=== PATIENT | male | born 1930 | race African-American/Black ===

== ENCOUNTER 2021-07-05 10:33 | Inpatient (IN) | payer MEDICARE, MEDICAID ==
[2021-07-05] MEDS ORDERED: cefTRIAXone\\ROCEPHIN 1 GM VIAL ONE (11:05)
[2021-07-05] MEDS ORDERED: Acetaminophen 500 MG TAB ONE (11:05)
[2021-07-05] MEDS ORDERED: Sodium Chloride 0.9% 100 ML ONE (11:05)
[2021-07-05 11:28] LABS: Hemoglobin 17.4 g/dL (14.0-18.0); Mean Corpuscular HGB CONC 32.6 g/dL (32.0-36.0); Mean Corpuscular Hemoglobin 27.8 pg (27.0-31.0); Mean Corpuscular Volume 85.3 fL (78.0-98.0); Mean Platelet Volume 10.7 fL (7.4-10.4); Platelet Count 131 thou/uL (130-400); RBC Distribution Width 13.2 % (11.5-14.5); Red Blood Cell (RBC) Count 6.25 mill/uL (4.70-6.10); White Blood Cell (WBC) Count 4.4 thou/uL (4.8-10.8)
[2021-07-05 12:01] LABS: Band 2 % (5-11); Lymphocytes 32 % (21-51); MDiff Complete? YES; Monocytes 11 % (0-10); Neutrophil 49 % (42-75); Reactive Lymphocytes 6 % (0-10)
[2021-07-05 12:10] LABS: ALT (SGPT) 25 U/L (8-55); AST (SGOT) 39 U/L (5-34); Albumin 3.6 g/dL (3.4-4.8); Alkaline Phosphatase 78 U/L (40-110); Anion Gap 20 mmol/L (10-20); BUN (Urea Nitrogen) 11 mg/dL (8.4-25.7); Bilirubin, Total 0.5 mg/dL (0.2-1.2); CK (CPK) 351 U/L (30-200); Calc. Creatinine Clearance 0 mL/min (70-130); Calcium 9.2 mg/dL (7.8-10.44); Carbon Dioxide 23 mmol/L (23-31); Chloride 99 mmol/L (98-107); Globulin 3.9 g/dL (2.4-3.5); Glucose 157 mg/dL (83-110); Potassium 4.6 mmol/L (3.5-5.1); Protein, Total 7.5 g/dL (5.8-8.1); Sodium 137 mmol/L (136-145)
[2021-07-05 12:19] LABS: Bilirubin Small (Negative); Blood, Urine Trace (Negative); Clarity Cloudy (Clear); Glucose, Urine (Dipstick) Negative (Negative); Ketone, Urine 40 mg/dL (Negative); Leukocyte Negative (Negative); Nitrite Negative (Negative); Protein, Urine (Dipstick) > or equal to 300 mg/dL (Neg-Trace); pH, Urine 5.5 (5.0-9.0)
[2021-07-05 12:22] LABS: Specific Gravity, Urine 1.026 (1.002-1.036)
[2021-07-05 12:23] LABS: Bacteria/HPF Rare-Few HPF (None Seen); RBC/HPF 0-3 HPF (0-3); Squamous Epithelial 0-3 HPF (0-3); WBC/HPF 0-3 HPF (0-3)
[2021-07-05 14:35] LABS: SARS-CoV-2 NAA Rapid Test DETECTED (NotDetected)
[2021-07-06] MEDS ORDERED: Sodium Chloride 0.9% 100 ML ONE (12:37)
[2021-07-06] MEDS ORDERED: cefTRIAXone\\ROCEPHIN 1 GM VIAL ONE (12:37)
[2021-07-06] MEDS ORDERED: Ondansetron ODT 4 MG TAB SL PRN (17:00)
[2021-07-06] MEDS ORDERED: Ondansetron PF 4 MG/2 ML Vial IVP PRN (17:00)
[2021-07-06] MEDS ORDERED: Acetaminophen 325 MG TAB PO PRN (17:00)
[2021-07-06 17:20] VITALS: BMI 25.4
[2021-07-06] MEDS ORDERED: Loperamide HCl 2 MG CAP PO PRN (17:52)
[2021-07-06] MEDS ORDERED: Guaifenesin DM 100-10/5 ML UDCUP PO PRN (17:52)
[2021-07-06] MEDS ORDERED: Bisacodyl 5 MG TAB PO PRN (17:52)
[2021-07-06] MEDS: Sodium Chloride 0.9% 1,000 ML IV SCH (21:06)
[2021-07-06] MEDS: Enoxaparin Sodium 30 MG/0.3 ML SYRINGE SC SCH (21:07)
[2021-07-07 05:56] LABS: #Lymphocytes 1.7 thou/uL (1.20-3.40); #Monocytes 0.5 thou/uL (0.11-0.59); #Neutrophils 5.4 thou/uL (1.40-6.50); %Basophils 0.2 % (0.0-1.0); %Lymphocytes 21.7 % (21.0-51.0); %Monocytes 6.6 % (0.0-10.0); %Neutrophils 71.5 % (42.0-75.0); Hemoglobin 14.4 g/dL (14.0-18.0); Mean Corpuscular HGB CONC 32.5 g/dL (32.0-36.0); Mean Corpuscular Hemoglobin 27.8 pg (27.0-31.0); Mean Corpuscular Volume 85.8 fL (78.0-98.0); Mean Platelet Volume 8.2 fL (7.4-10.4); Platelet Count 120 thou/uL (130-400); RBC Distribution Width 12.6 % (11.5-14.5); Red Blood Cell (RBC) Count 5.17 mill/uL (4.70-6.10); White Blood Cell (WBC) Count 7.6 thou/uL (4.8-10.8)
[2021-07-07 06:30] LABS: Anion Gap 17 mmol/L (10-20)
[2021-07-07 06:42] LABS: ALT (SGPT) 18 U/L (8-55); AST (SGOT) 30 U/L (5-34); Albumin 2.9 g/dL (3.4-4.8); Alkaline Phosphatase 64 U/L (40-110); BUN (Urea Nitrogen) 9 mg/dL (8.4-25.7); Bilirubin, Total 0.5 mg/dL (0.2-1.2); Calc. Creatinine Clearance 81 mL/min (70-130); Calcium 8.1 mg/dL (7.8-10.44); Carbon Dioxide 23 mmol/L (23-31); Chloride 101 mmol/L (98-107); Globulin 2.4 g/dL (2.4-3.5); Glucose 132 mg/dL (83-110); Potassium 4.1 mmol/L (3.5-5.1); Protein, Total 5.3 g/dL (5.8-8.1); Sodium 137 mmol/L (136-145)
[2021-07-07] MEDS: Sodium Chloride 0.9% 1,000 ML IV SCH ×5 (07:46→21:27)
[2021-07-07] MEDS: Enoxaparin Sodium 30 MG/0.3 ML SYRINGE SC SCH ×2 (09:03→21:27)
[2021-07-08 05:15] LABS: ALT (SGPT) 16 U/L (8-55); AST (SGOT) 25 U/L (5-34); Albumin 2.7 g/dL (3.4-4.8); Alkaline Phosphatase 63 U/L (40-110); Anion Gap 18 mmol/L (10-20); BUN (Urea Nitrogen) 8 mg/dL (8.4-25.7); Bilirubin, Total 0.4 mg/dL (0.2-1.2); Calc. Creatinine Clearance 83 mL/min (70-130); Calcium 8.8 mg/dL (7.8-10.44); Carbon Dioxide 24 mmol/L (23-31); Chloride 102 mmol/L (98-107); Globulin 2.9 g/dL (2.4-3.5); Glucose 115 mg/dL (83-110); Potassium 3.6 mmol/L (3.5-5.1); Protein, Total 5.6 g/dL (5.8-8.1); Sodium 140 mmol/L (136-145)
[2021-07-08 06:27] LABS: Hemoglobin 14.3 g/dL (14.0-18.0); Lymphocytes 37 % (21-51); MDiff Complete? YES; Mean Corpuscular HGB CONC 32.3 g/dL (32.0-36.0); Mean Corpuscular Hemoglobin 27.7 pg (27.0-31.0); Mean Corpuscular Volume 85.8 fL (78.0-98.0); Monocytes 6 % (0-10); Neutrophil 57 % (42-75); Platelet Count 141 thou/uL (130-400); Platelet Morphology Comment Appears Adequate; RBC Distribution Width 12.6 % (11.5-14.5); RBC Morphology Normal; Red Blood Cell (RBC) Count 5.15 mill/uL (4.70-6.10); White Blood Cell (WBC) Count 4.9 thou/uL (4.8-10.8)
[2021-07-08] MEDS: Sodium Chloride 0.9% 1,000 ML IV SCH ×2 (10:04→13:45)
[2021-07-08] MEDS: Enoxaparin Sodium 30 MG/0.3 ML SYRINGE SC SCH ×2 (10:05→21:31)
[2021-07-09] MEDS: Gentamicin Ophth Ointment 0.3% 3.5 gm Tube EA EYE SCH ×2 (00:05→09:47)
[2021-07-09] MEDS: Sodium Chloride 0.9% 1,000 ML IV SCH ×2 (05:07→13:37)
[2021-07-09] MEDS: Enoxaparin Sodium 30 MG/0.3 ML SYRINGE SC SCH ×2 (09:46→20:49)
[2021-07-09] MEDS ORDERED: Gentamicin Ophth Soln 0.3% 5 ml Bottle ONE (14:17)
[2021-07-09] MEDS: Gentamicin Ophth Soln 0.3% 5 ml Bottle EA EYE SCH ×2 (14:21→20:56)
[2021-07-09 17:33] VITALS: BP 153/72; TEMP 98
[2021-07-10] MEDS ORDERED: Cholecalciferol (Vitamin D3) 400 UNITS TAB PO SCH (09:00)
[2021-07-10] MEDS ORDERED: Zinc Sulfate 220 MG CAP PO SCH (09:00)
[2021-07-10] MEDS ORDERED: Ascorbic Acid 500 mg Chewable Tablet PO SCH (09:00)
== END 2021-07-09 22:30 | disposition swing bed (61) | DRG 177 ==
LOC: BURERS 10:33 → BURMED 07-06 14:37
PROVIDERS: ADMIT Family Medicine; ATTEND Family Medicine
PROC: 8E0ZXY6 Isolation (ICD-10-PCS; principal; 2021-07-06)
DX: U07.1 COVID-19 (principal); J12.82 Pneumonia due to coronavirus disease 2019; E11.9 Type 2 diabetes mellitus without complications; E78.5 Hyperlipidemia, unspecified; E78.00 Pure hypercholesterolemia, unspecified; I10 Essential (primary) hypertension
CPT/HCPCS: 36415; 51702; 70450; 71045; 71250; 80053; 81003; 81015; 82550; 82728; 83605; 83880; 84484; 85025; 85379; 86140; 87040; 87086; 87804; 93005; 94760; 96365; 96376; J0696; J1650; J3490; J7050; U0002

== ENCOUNTER 2021-07-09 19:10 | Inpatient (IN) | payer MEDICARE, MEDICAID ==
[2021-07-10 00:20] VITALS: BMI 25.4
[2021-07-10] MEDS ORDERED: Acetaminophen 325 MG TAB PO PRN (04:59)
[2021-07-10] MEDS ORDERED: Guaifenesin DM 100-10/5 ML UDCUP PO PRN (05:00)
[2021-07-10] MEDS ORDERED: Ondansetron ODT 4 MG TAB SL PRN (05:01)
[2021-07-10] MEDS: Sodium Chloride 0.9% 1,000 ML IV SCH ×2 (05:02→17:02)
[2021-07-10] MEDS: metFORMIN 500 MG TAB PO SCH ×2 (10:21→17:02)
[2021-07-10] MEDS: Ascorbic Acid 500 mg Chewable Tablet PO SCH (10:21)
[2021-07-10] MEDS: Cholecalciferol 1,000 UNITS (25 MCG) TAB PO SCH (10:22)
[2021-07-10] MEDS: Zinc Sulfate 220 MG CAP PO SCH (10:22)
[2021-07-10] MEDS: Nystatin 500,000 UNITS/5 ML UDCUP SSW SCH ×3 (10:22→20:58)
[2021-07-10] MEDS: Lisinopril 20 MG TAB PO SCH (10:22)
[2021-07-10] MEDS: Enoxaparin Sodium 30 MG/0.3 ML SYRINGE SC SCH ×2 (10:23→20:57)
[2021-07-10] MEDS: Gentamicin Ophth Soln 0.3% 5 ml Bottle EA EYE SCH ×3 (10:23→20:58)
[2021-07-11] MEDS: Nystatin 500,000 UNITS/5 ML UDCUP SSW SCH ×3 (09:59→21:31)
[2021-07-11] MEDS: metFORMIN 500 MG TAB PO SCH ×2 (09:59→17:04)
[2021-07-11] MEDS: Ascorbic Acid 500 mg Chewable Tablet PO SCH (10:00)
[2021-07-11] MEDS: Enoxaparin Sodium 30 MG/0.3 ML SYRINGE SC SCH ×2 (10:03→21:30)
[2021-07-11] MEDS: Cholecalciferol 1,000 UNITS (25 MCG) TAB PO SCH (10:03)
[2021-07-11] MEDS: Lisinopril 20 MG TAB PO SCH (10:03)
[2021-07-11] MEDS: Gentamicin Ophth Soln 0.3% 5 ml Bottle EA EYE SCH ×3 (10:03→21:31)
[2021-07-11] MEDS: Sodium Chloride 0.9% 1,000 ML IV SCH ×2 (10:04→21:43)
[2021-07-11] MEDS: Zinc Sulfate 220 MG CAP PO SCH (10:04)
[2021-07-12 05:18] LABS: #Lymphocytes 1.6 thou/uL (1.20-3.40); #Monocytes 0.7 thou/uL (0.11-0.59); #Neutrophils 2.6 thou/uL (1.40-6.50); %Basophils 0.6 % (0.0-1.0); %Eosinophils 0.9 % (0.0-10.0); %Lymphocytes 31.7 % (21.0-51.0); %Monocytes 14.7 % (0.0-10.0); %Neutrophils 52.1 % (42.0-75.0); Hemoglobin 12.9 g/dL (14.0-18.0); Mean Corpuscular HGB CONC 32.2 g/dL (32.0-36.0); Mean Corpuscular Hemoglobin 27.6 pg (27.0-31.0); Mean Corpuscular Volume 85.5 fL (78.0-98.0); Mean Platelet Volume 9.7 fL (7.4-10.4); Platelet Count 189 thou/uL (130-400); RBC Distribution Width 12.9 % (11.5-14.5); Red Blood Cell (RBC) Count 4.69 mill/uL (4.70-6.10); White Blood Cell (WBC) Count 4.9 thou/uL (4.8-10.8)
[2021-07-12 05:21] LABS: ALT (SGPT) 20 U/L (8-55); AST (SGOT) 23 U/L (5-34); Albumin 2.5 g/dL (3.4-4.8); Alkaline Phosphatase 67 U/L (40-110); Anion Gap 13 mmol/L (10-20); BUN (Urea Nitrogen) Less than 4 mg/dL (8.4-25.7); Bilirubin, Total 0.4 mg/dL (0.2-1.2); CRP (Inflammatory) 3.95 mg/dL (= or < 0.5); Calc. Creatinine Clearance 81 mL/min (70-130); Calcium 8.4 mg/dL (7.8-10.44); Carbon Dioxide 26 mmol/L (23-31); Chloride 106 mmol/L (98-107); Globulin 3.2 g/dL (2.4-3.5); Glucose 144 mg/dL (83-110); Potassium 3.5 mmol/L (3.5-5.1); Protein, Total 5.7 g/dL (5.8-8.1); Sodium 141 mmol/L (136-145)
[2021-07-12] MEDS: Zinc Sulfate 220 MG CAP PO SCH (11:23)
[2021-07-12] MEDS: Enoxaparin Sodium 30 MG/0.3 ML SYRINGE SC SCH ×2 (11:23→21:32)
[2021-07-12] MEDS: Nystatin 500,000 UNITS/5 ML UDCUP SSW SCH ×3 (11:24→21:33)
[2021-07-12] MEDS: metFORMIN 500 MG TAB PO SCH ×2 (11:24→16:47)
[2021-07-12] MEDS: Cholecalciferol 1,000 UNITS (25 MCG) TAB PO SCH (11:24)
[2021-07-12] MEDS: Ascorbic Acid 500 mg Chewable Tablet PO SCH (11:25)
[2021-07-12] MEDS: Sodium Chloride 0.9% 1,000 ML IV SCH ×2 (11:25→23:50)
[2021-07-12] MEDS: Gentamicin Ophth Soln 0.3% 5 ml Bottle EA EYE SCH ×3 (11:25→21:32)
[2021-07-12] MEDS: Lisinopril 20 MG TAB PO SCH (11:26)
[2021-07-13] MEDS: Enoxaparin Sodium 30 MG/0.3 ML SYRINGE SC SCH ×2 (09:44→20:42)
[2021-07-13] MEDS: Ascorbic Acid 500 mg Chewable Tablet PO SCH (09:44)
[2021-07-13] MEDS: Gentamicin Ophth Soln 0.3% 5 ml Bottle EA EYE SCH ×3 (09:44→20:43)
[2021-07-13] MEDS: metFORMIN 500 MG TAB PO SCH ×2 (09:45→16:51)
[2021-07-13] MEDS: Lisinopril 20 MG TAB PO SCH (09:46)
[2021-07-13] MEDS: Cholecalciferol 1,000 UNITS (25 MCG) TAB PO SCH (09:46)
[2021-07-13] MEDS: Zinc Sulfate 220 MG CAP PO SCH (09:46)
[2021-07-13] MEDS: Nystatin 500,000 UNITS/5 ML UDCUP SSW SCH ×3 (09:47→20:42)
[2021-07-13] MEDS: Sodium Chloride 0.9% 1,000 ML IV SCH (16:02)
[2021-07-14] MEDS: Sodium Chloride 0.9% 1,000 ML IV SCH ×2 (04:56→14:27)
[2021-07-14] MEDS: Gentamicin Ophth Soln 0.3% 5 ml Bottle EA EYE SCH ×3 (10:30→20:35)
[2021-07-14] MEDS: Enoxaparin Sodium 30 MG/0.3 ML SYRINGE SC SCH ×2 (10:30→20:35)
[2021-07-14] MEDS: Nystatin 500,000 UNITS/5 ML UDCUP SSW SCH ×3 (10:31→20:35)
[2021-07-14] MEDS: Zinc Sulfate 220 MG CAP PO SCH (10:31)
[2021-07-14] MEDS: Ascorbic Acid 500 mg Chewable Tablet PO SCH (10:31)
[2021-07-14] MEDS: metFORMIN 500 MG TAB PO SCH ×2 (10:31→18:06)
[2021-07-14] MEDS: Cholecalciferol 1,000 UNITS (25 MCG) TAB PO SCH (10:32)
[2021-07-14] MEDS: Lisinopril 20 MG TAB PO SCH (10:32)
[2021-07-15] MEDS: Zinc Sulfate 220 MG CAP PO SCH (11:08)
[2021-07-15] MEDS: metFORMIN 500 MG TAB PO SCH ×2 (11:08→18:24)
[2021-07-15] MEDS: Cholecalciferol 1,000 UNITS (25 MCG) TAB PO SCH (11:09)
[2021-07-15] MEDS: Lisinopril 20 MG TAB PO SCH (11:09)
[2021-07-15] MEDS: Ascorbic Acid 500 mg Chewable Tablet PO SCH (11:09)
[2021-07-15] MEDS: Enoxaparin Sodium 30 MG/0.3 ML SYRINGE SC SCH ×2 (11:10→20:57)
[2021-07-15] MEDS: Nystatin 500,000 UNITS/5 ML UDCUP SSW SCH ×3 (11:11→20:56)
[2021-07-15] MEDS: Gentamicin Ophth Soln 0.3% 5 ml Bottle EA EYE SCH ×3 (11:11→20:56)
[2021-07-15] MEDS: Sodium Chloride 0.9% 1,000 ML IV SCH (19:38)
[2021-07-16] MEDS: Bisacodyl 5 MG TAB PO PRN (10:29)
[2021-07-16] MEDS: Nystatin 500,000 UNITS/5 ML UDCUP SSW SCH ×3 (10:29→20:23)
[2021-07-16] MEDS: Ascorbic Acid 500 mg Chewable Tablet PO SCH (10:30)
[2021-07-16] MEDS: Zinc Sulfate 220 MG CAP PO SCH (10:30)
[2021-07-16] MEDS: Gentamicin Ophth Soln 0.3% 5 ml Bottle EA EYE SCH ×3 (10:31→20:23)
[2021-07-16] MEDS: Lisinopril 20 MG TAB PO SCH (10:31)
[2021-07-16] MEDS: Cholecalciferol 1,000 UNITS (25 MCG) TAB PO SCH (10:31)
[2021-07-16] MEDS: metFORMIN 500 MG TAB PO SCH ×2 (10:31→17:37)
[2021-07-16] MEDS: Enoxaparin Sodium 30 MG/0.3 ML SYRINGE SC SCH ×2 (10:32→20:23)
[2021-07-17] MEDS: Enoxaparin Sodium 30 MG/0.3 ML SYRINGE SC SCH ×2 (08:50→21:15)
[2021-07-17] MEDS: Gentamicin Ophth Soln 0.3% 5 ml Bottle EA EYE SCH ×3 (08:50→21:15)
[2021-07-17] MEDS: Lisinopril 20 MG TAB PO SCH (08:51)
[2021-07-17] MEDS: Cholecalciferol 1,000 UNITS (25 MCG) TAB PO SCH (08:51)
[2021-07-17] MEDS: Ascorbic Acid 500 mg Chewable Tablet PO SCH (08:51)
[2021-07-17] MEDS: metFORMIN 500 MG TAB PO SCH ×2 (08:52→17:26)
[2021-07-17] MEDS: Zinc Sulfate 220 MG CAP PO SCH (08:53)
[2021-07-17] MEDS: Bisacodyl 5 MG TAB PO PRN (14:57)
[2021-07-17] MEDS ORDERED: Dextrose 50% Abboject 50 ML SYRINGE SLOW IVP PRN (18:59)
[2021-07-17] MEDS ORDERED: Dextrose 5% in Water 1,000 ML IV PRN (18:59)
[2021-07-17] MEDS ORDERED: HumaLOG 300 UNITS/3 ML VIAL SC PRN (18:59)
[2021-07-18] MEDS: Gentamicin Ophth Soln 0.3% 5 ml Bottle EA EYE SCH ×3 (07:50→20:46)
[2021-07-18] MEDS: Lisinopril 20 MG TAB PO SCH (07:51)
[2021-07-18] MEDS: Zinc Sulfate 220 MG CAP PO SCH (07:51)
[2021-07-18] MEDS: Cholecalciferol 1,000 UNITS (25 MCG) TAB PO SCH (07:52)
[2021-07-18] MEDS: Ascorbic Acid 500 mg Chewable Tablet PO SCH (07:52)
[2021-07-18] MEDS: metFORMIN 500 MG TAB PO SCH ×2 (07:52→17:50)
[2021-07-18] MEDS: Enoxaparin Sodium 30 MG/0.3 ML SYRINGE SC SCH ×2 (07:54→20:46)
[2021-07-18] MEDS ORDERED: Triamterene/Hydrochlorothiazide TAB PO SCH (09:00)
[2021-07-19] MEDS: Gentamicin Ophth Soln 0.3% 5 ml Bottle EA EYE SCH ×3 (08:34→20:55)
[2021-07-19] MEDS: Enoxaparin Sodium 30 MG/0.3 ML SYRINGE SC SCH ×2 (08:34→20:54)
[2021-07-19] MEDS: Triamterene/Hydrochlorothiazide 37.5 mg/25 mg Tablet PO SCH (08:35)
[2021-07-19] MEDS: Zinc Sulfate 220 MG CAP PO SCH (08:35)
[2021-07-19] MEDS: Ascorbic Acid 500 mg Chewable Tablet PO SCH (08:35)
[2021-07-19] MEDS: Lisinopril 20 MG TAB PO SCH (08:35)
[2021-07-19] MEDS: Cholecalciferol 1,000 UNITS (25 MCG) TAB PO SCH (08:37)
[2021-07-19] MEDS: metFORMIN 500 MG TAB PO SCH ×2 (08:37→17:46)
[2021-07-20 07:44] LABS: Hemoglobin 14.9 g/dL (14.0-18.0); Platelet Count 230 thou/uL (130-400)
[2021-07-20 07:48] LABS: Calc. Creatinine Clearance 72 mL/min (70-130)
[2021-07-20] MEDS: Enoxaparin Sodium 30 MG/0.3 ML SYRINGE SC SCH ×2 (09:57→21:21)
[2021-07-20] MEDS: Ascorbic Acid 500 mg Chewable Tablet PO SCH (09:58)
[2021-07-20] MEDS: Zinc Sulfate 220 MG CAP PO SCH (09:58)
[2021-07-20] MEDS: Lisinopril 20 MG TAB PO SCH (09:58)
[2021-07-20] MEDS: metFORMIN 500 MG TAB PO SCH ×2 (09:59→18:25)
[2021-07-20] MEDS: Gentamicin Ophth Soln 0.3% 5 ml Bottle EA EYE SCH ×3 (09:59→21:22)
[2021-07-20] MEDS: Cholecalciferol 1,000 UNITS (25 MCG) TAB PO SCH (09:59)
[2021-07-20] MEDS: Triamterene/Hydrochlorothiazide 37.5 mg/25 mg Tablet PO SCH (09:59)
[2021-07-21] MEDS: Ascorbic Acid 500 mg Chewable Tablet PO SCH (09:45)
[2021-07-21] MEDS: Enoxaparin Sodium 30 MG/0.3 ML SYRINGE SC SCH ×2 (09:45→21:56)
[2021-07-21] MEDS: Zinc Sulfate 220 MG CAP PO SCH (09:47)
[2021-07-21] MEDS: Triamterene/Hydrochlorothiazide 37.5 mg/25 mg Tablet PO SCH (09:47)
[2021-07-21] MEDS: metFORMIN 500 MG TAB PO SCH ×2 (09:48→17:53)
[2021-07-21] MEDS: Cholecalciferol 1,000 UNITS (25 MCG) TAB PO SCH (09:49)
[2021-07-21] MEDS: Lisinopril 20 MG TAB PO SCH (09:49)
[2021-07-21] MEDS: Gentamicin Ophth Soln 0.3% 5 ml Bottle EA EYE SCH ×3 (09:56→21:55)
[2021-07-22 05:05] LABS: Platelet Count 215 thou/uL (130-400)
[2021-07-22 05:34] LABS: Calc. Creatinine Clearance 68 mL/min (70-130)
[2021-07-22] MEDS: Enoxaparin Sodium 30 MG/0.3 ML SYRINGE SC SCH ×2 (09:37→20:43)
[2021-07-22] MEDS: Ascorbic Acid 500 mg Chewable Tablet PO SCH (09:38)
[2021-07-22] MEDS: Triamterene/Hydrochlorothiazide 37.5 mg/25 mg Tablet PO SCH (09:38)
[2021-07-22] MEDS: metFORMIN 500 MG TAB PO SCH ×2 (09:38→16:23)
[2021-07-22] MEDS: Zinc Sulfate 220 MG CAP PO SCH (09:39)
[2021-07-22] MEDS: Lisinopril 20 MG TAB PO SCH (09:39)
[2021-07-22] MEDS: Cholecalciferol 1,000 UNITS (25 MCG) TAB PO SCH (09:39)
[2021-07-22] MEDS: Gentamicin Ophth Soln 0.3% 5 ml Bottle EA EYE SCH ×3 (09:40→20:43)
[2021-07-22] MEDS: HumaLOG 300 UNITS/3 ML VIAL SC PRN (18:46)
[2021-07-23] MEDS: Enoxaparin Sodium 30 MG/0.3 ML SYRINGE SC SCH ×2 (09:10→20:04)
[2021-07-23] MEDS: Gentamicin Ophth Soln 0.3% 5 ml Bottle EA EYE SCH ×3 (09:11→20:03)
[2021-07-23] MEDS: metFORMIN 500 MG TAB PO SCH ×2 (09:12→16:30)
[2021-07-23] MEDS: Zinc Sulfate 220 MG CAP PO SCH (09:13)
[2021-07-23] MEDS: Triamterene/Hydrochlorothiazide 37.5 mg/25 mg Tablet PO SCH (09:13)
[2021-07-23] MEDS: Ascorbic Acid 500 mg Chewable Tablet PO SCH (09:13)
[2021-07-23] MEDS: Lisinopril 20 MG TAB PO SCH (09:13)
[2021-07-23] MEDS: Cholecalciferol 1,000 UNITS (25 MCG) TAB PO SCH (09:13)
[2021-07-24] MEDS: Ascorbic Acid 500 mg Chewable Tablet PO SCH (09:40)
[2021-07-24] MEDS: Lisinopril 20 MG TAB PO SCH (09:40)
[2021-07-24] MEDS: metFORMIN 500 MG TAB PO SCH ×2 (09:40→15:50)
[2021-07-24] MEDS: Zinc Sulfate 220 MG CAP PO SCH (09:40)
[2021-07-24] MEDS: Triamterene/Hydrochlorothiazide 37.5 mg/25 mg Tablet PO SCH (09:40)
[2021-07-24] MEDS: Cholecalciferol 1,000 UNITS (25 MCG) TAB PO SCH (09:40)
[2021-07-24] MEDS: Enoxaparin Sodium 30 MG/0.3 ML SYRINGE SC SCH ×2 (09:41→22:45)
[2021-07-24] MEDS: Gentamicin Ophth Soln 0.3% 5 ml Bottle EA EYE SCH ×3 (09:41→22:45)
[2021-07-24] MEDS: HumaLOG 300 UNITS/3 ML VIAL SC PRN (09:45)
[2021-07-24] MEDS ORDERED: Gentamicin Ophth Soln 0.3% 5 ml Bottle ONE (22:36)
[2021-07-25 05:16] LABS: Hemoglobin 15.3 g/dL (14.0-18.0); Platelet Count 188 thou/uL (130-400)
[2021-07-25] MEDS: Gentamicin Ophth Soln 0.3% 5 ml Bottle EA EYE SCH ×3 (09:33→21:17)
[2021-07-25] MEDS: Zinc Sulfate 220 MG CAP PO SCH (09:33)
[2021-07-25] MEDS: Triamterene/Hydrochlorothiazide 37.5 mg/25 mg Tablet PO SCH (09:33)
[2021-07-25] MEDS: metFORMIN 500 MG TAB PO SCH ×2 (09:34→16:02)
[2021-07-25] MEDS: Cholecalciferol 1,000 UNITS (25 MCG) TAB PO SCH (09:34)
[2021-07-25] MEDS: Lisinopril 20 MG TAB PO SCH (09:34)
[2021-07-25] MEDS: Enoxaparin Sodium 30 MG/0.3 ML SYRINGE SC SCH ×2 (09:34→21:16)
[2021-07-25] MEDS: Ascorbic Acid 500 mg Chewable Tablet PO SCH (09:34)
[2021-07-25] MEDS: HumaLOG 300 UNITS/3 ML VIAL SC PRN (13:13)
[2021-07-26] MEDS: Triamterene/Hydrochlorothiazide 37.5 mg/25 mg Tablet PO SCH (09:16)
[2021-07-26] MEDS: Cholecalciferol 1,000 UNITS (25 MCG) TAB PO SCH (09:16)
[2021-07-26] MEDS: Zinc Sulfate 220 MG CAP PO SCH (09:16)
[2021-07-26] MEDS: Ascorbic Acid 500 mg Chewable Tablet PO SCH (09:16)
[2021-07-26] MEDS: metFORMIN 500 MG TAB PO SCH ×2 (09:16→16:41)
[2021-07-26] MEDS: Lisinopril 20 MG TAB PO SCH (09:17)
[2021-07-26] MEDS: Enoxaparin Sodium 30 MG/0.3 ML SYRINGE SC SCH ×2 (09:17→21:44)
[2021-07-26] MEDS: Gentamicin Ophth Soln 0.3% 5 ml Bottle EA EYE SCH ×3 (09:18→21:45)
[2021-07-26] MEDS: HumaLOG 300 UNITS/3 ML VIAL SC PRN (13:07)
[2021-07-27] MEDS: Lisinopril 20 MG TAB PO SCH (09:45)
[2021-07-27] MEDS: metFORMIN 500 MG TAB PO SCH ×2 (09:46→18:24)
[2021-07-27] MEDS: Zinc Sulfate 220 MG CAP PO SCH (09:47)
[2021-07-27] MEDS: Enoxaparin Sodium 30 MG/0.3 ML SYRINGE SC SCH ×2 (09:47→22:20)
[2021-07-27] MEDS: Cholecalciferol 1,000 UNITS (25 MCG) TAB PO SCH (09:47)
[2021-07-27] MEDS: Ascorbic Acid 500 mg Chewable Tablet PO SCH (09:47)
[2021-07-27] MEDS: Triamterene/Hydrochlorothiazide 37.5 mg/25 mg Tablet PO SCH (09:47)
[2021-07-27] MEDS: Gentamicin Ophth Soln 0.3% 5 ml Bottle EA EYE SCH (09:49)
[2021-07-27] MEDS: HumaLOG 300 UNITS/3 ML VIAL SC PRN (18:25)
[2021-07-28 05:31] VITALS: TEMP 98
[2021-07-28 06:03] LABS: Hemoglobin 14.9 g/dL (14.0-18.0); Platelet Count 194 thou/uL (130-400)
[2021-07-28] MEDS: Triamterene/Hydrochlorothiazide 37.5 mg/25 mg Tablet PO SCH (08:35)
[2021-07-28] MEDS: Cholecalciferol 1,000 UNITS (25 MCG) TAB PO SCH (08:35)
[2021-07-28] MEDS: Ascorbic Acid 500 mg Chewable Tablet PO SCH (08:35)
[2021-07-28] MEDS: metFORMIN 500 MG TAB PO SCH (08:35)
[2021-07-28] MEDS: Zinc Sulfate 220 MG CAP PO SCH (08:35)
[2021-07-28] MEDS: Lisinopril 20 MG TAB PO SCH (08:35)
[2021-07-28 08:36] VITALS: BP 110/60
[2021-07-28] MEDS: Enoxaparin Sodium 30 MG/0.3 ML SYRINGE SC SCH (08:36)
== END 2021-07-28 16:00 | DRG 177 ==
LOC: BURMED 19:10
PROVIDERS: ADMIT Family Medicine; ATTEND Family Medicine
DX: U07.1 COVID-19 (principal); J12.82 Pneumonia due to coronavirus disease 2019; R53.81 Other malaise; E11.9 Type 2 diabetes mellitus without complications; I10 Essential (primary) hypertension; E78.5 Hyperlipidemia, unspecified; M19.90 Unspecified osteoarthritis, unspecified site; N40.0 Benign prostatic hyperplasia without lower urinary tract symptoms
CPT/HCPCS: 36415; 36416; 80053; 82565; 85014; 85018; 85025; 85049; 85379; 86140; J1650; J1815; J7050

== ENCOUNTER 2022-04-05 20:12 | Outpatient (CLI) | payer MEDICARE, MEDICAID ==
[2022-04-05 20:23] LABS: Bilirubin Negative (Negative); Blood, Urine Negative (Negative); Clarity Clear (Clear); Glucose, Urine (Dipstick) Negative (Negative); Ketone, Urine Negative (Negative); Leukocyte Negative (Negative); Nitrite Negative (Negative); Protein, Urine (Dipstick) 30 mg/dL (Neg-Trace); Urobilinogen 0.2 mg/dL (Less than 2); pH, Urine 5.5 (5.0-9.0)
== END 2022-04-05 20:13 | disposition home or self-care (01) ==
LOC: BURLABSP 20:12
PROVIDERS: ATTEND Family Medicine
DX: N39.0 Urinary tract infection, site not specified (principal)
CPT/HCPCS: 81003; 87086